=== PATIENT | female | born 1970 | race Caucasian/White ===

== ENCOUNTER → 2023-05-14 13:09 | Outpatient (REF) | payer OTHER, SELFPAY | LOC: HWWDC 13:09 | PROVIDERS: ATTENDING PHYSICIAN Physician Assistant Medical | DX: Z12.31 Encounter for screening mammogram for malignant neoplasm of breast (principal) | CPT/HCPCS: 77063; 77067 ==

== ENCOUNTER → 2023-05-17 18:09 | Outpatient (REF) | payer OTHER, SELFPAY | LOC: MRI 18:09 | PROVIDERS: ATTENDING PHYSICIAN Registered Nurse; FAMILY PHYSICIAN Physician Assistant Medical | DX: R42 Dizziness and giddiness (principal); R90.89 Other abnormal findings on diagnostic imaging of central nervous system | CPT/HCPCS: 70553; A9575 ==

== ENCOUNTER → 2024-07-14 08:11 | Outpatient (REF) | payer OTHER, SELFPAY | LOC: HWWDC 08:11 | PROVIDERS: ATTENDING PHYSICIAN Student in an Organized Health Care Education/Training Program | DX: Z12.31 Encounter for screening mammogram for malignant neoplasm of breast (principal) | CPT/HCPCS: 77063; 77067 ==

== ENCOUNTER 2025-01-07 19:01 | Emergency (ER) | payer OTHER, SELFPAY ==
[2025-01-07 19:06] VITALS: BP 153/91
[2025-01-07 19:38] LABS: Hematocrit 41.4 % (37.0-47.0); Hemoglobin 14.6 g/dL (12.0-16.0); Mean Corp Hgb Conc. 35.3 g/dL (33.0-37.0); Mean Corpuscular Volume 93.7 fL (81.0-99.0); Nucleated Red Blood Cells % 0 %; Platelet Count 230 10^3/uL (130-400); Red Cell Dist. Width 13.2 % (11.5-14.5)
[2025-01-07 19:59] LABS: ALT (SGPT) 24 U/L (0-35); AST (SGOT) 25 U/L (14-36); Albumin 4.2 g/dl (3.5-5.0); Alkaline Phosphatase 57 U/L (38-126); Blood Urea Nitrogen 12 mg/dl (7-17); Calcium 9.4 mg/dl (8.4-10.2); Carbon Dioxide 27 mmol/L (22-30); Chloride 105 mmol/L (98-107); Glucose 114 mg/dl (70-99); Lipase 104 U/L (23-300); Potassium 4.1 mmol/L (3.5-5.1); Sodium 138 mmol/L (135-145); Total Protein 6.6 g/dl (6.3-8.2); eGFR > 60.00
[2025-01-07 21:29] VITALS: BP 131/65; BMI 44.3
[2025-01-07 22:00] VITALS: BP 131/72
--- NOTE | 2025-01-07 22:28 | ED.GENMED ---
History of Present Illness
General
Chief Complaint: Abdominal Pain
Source: patient
Exam Limitations: none
Time Seen by Provider: 01/07/25 21:23
Nursing documentation reviewed up to this point in time: agreed with
History of Present Illness
History of Present Illness:
see MDM
Past History
Past History
ED Past Medical History: Cancer (Skin CA), GERD, Hypercholesterolemia, Hypothyroidism, Psychiatric (Anxiety), Other (Low back pain, headaches, Herniated disc) and Other (Genital and occular herpes)
ED Past Surgical History: Appendectomy (May 2011) and
Social History
Tobacco: Former smoker
Alcohol: Occasional
Personal: Single
Living: alone
Employment: Employed
Family History
Family History: Other (Both biological parents with mental health issues)
Review of Systems
Review of Systems
Allergies reviewed?: Yes
All Other Systems: Not applicable
Phy Exam
Physical Exam
Physical Exam:
GENERAL: Alert , in no apparent distress
EYE: pupils equal and reactive
NECK: Supple
ENT: o/p clr, mmm.
CARDIAC: Regular rate and rhythm .
LUNGS: Clear breath sounds bilaterally, no acute respiratory distress, no wheezes/rales/rhonchi
ABDOMEN: Soft, obese, without focal tenderness, no r/g, no cvat, normal bowel sounds
rectal: small nonbleeding external hemorrhoid; no vesicles
gu: no visualized herpetic lesions in vaginal folds
NEUROLOGICAL: Alert and oriented, no focal neuro deficits
SKIN: Warm and dry, skin intact.
MUSCULOSKELETAL: No edema, well perfused. neg zurdo's sign
PSYCH: Normal and appropriate interaction.
Course
Orders/Labs/Results
Orders:
Orders
01/07/25 19:29
Complete Blood Count/With Diff Urgent
Comprehensive Metabolic Panel Urgent
Lipase Urgent
01/07/25 22:08
CT Abd/Pel (IV only)-DH only Urgent
Comment:
Reason For Exam: constipation, r/o SBO
01/07/25 22:47
Urinalysis Reflex To Culture Urgent
Date Specimen was Collected: 01/07/25
Time Specimen was Collected: 22:46
Abnormal Lab Results
01/07/25
19:29
MCH 33.0 H pg
(27.0-31.0)
Glucose 114 H mg/dl
(70-99)
01/07/25 19:29
01/07/25 19:29
Vital Signs
Initial and Last Documented VS:
Initial Vital Signs
Temp Pulse Resp BP Pulse Ox
36.8 C 90 18 153/91 99
01/07/25 19:06 01/07/25 19:06 01/07/25 19:06 01/07/25 19:06 01/07/25 19:06
Last Documented Vital Signs
Temp Pulse Resp BP Pulse Ox
36.8 C 78 13 131/72 99
01/07/25 19:06 01/07/25 22:45 01/07/25 22:45 01/07/25 22:00 01/07/25 22:45
MDM/Problems Addressed
Differential Diagnosis Includes:
see MDM
MDM/Problems Addressed:
Note:
CHIEF COMPLAINT(S)
The patient presents with abdominal pain, severe constipation, and a herpes simplex outbreak.
HISTORY OF PRESENT ILLNESS
The patient is a 54-year-old female with a history of long COVID, currently presenting with a herpes simplex outbreak that began approximately two weeks ago, characterized by a couple of lesions in the vaginal area. The patient reports significant
discomfort, particularly when urinating, due to a lesion on the clitoral cooley, and describes an abdominal sensitivity that has persisted for about ten days. The abdominal area, from below the rib cage to the region around the belly button, is
described as sore and sensitive.
The patient is experiencing severe constipation, noting an inability to pass stool despite taking stool softeners like docusate sodium (Colace) for approximately ten days and using enemas without significant results. She also reports occasional acid
reflux. An X-ray reviewed online apparently indicated a collapsed small bowel and partial blockage, suggesting the need for further imaging.
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 She reports this has mildly improved her symptoms.
The patient denies using narcotic pain medications and is currently taking ibuprofen for pain management. There is no history of vomiting, although nausea is reported, particularly in the mornings.
PAST SURGICAL HISTORY
The patient has an appendectomy in her surgical history.
MEDICATIONS
- Valacyclovir (Valtrex) 1 gram once daily for ocular shingles, increased to twice daily during herpes outbreaks.
- Docusate sodium (Colace) for constipation.
- Ibuprofen for pain.
REVIEW OF SYSTEMS
- Gastrointestinal: Severe constipation, abdominal soreness, and occasional acid reflux.
- Genitourinary: Dysuria due to herpes lesion, genital lesions.
- Neurological: Long COVID-related symptoms.
- Skin: Herpes simplex lesions on the vaginal area and a couple on the body.
PHYSICAL EXAM
- Abdominal tenderness observed during the examination.
- No stool was palpable during the rectal examination.
- Nursing notes reviewed and vital signs reviewed.
PLAN
- A computed tomography (CT) scan is planned to assess for potential bowel obstruction.
- Administration of a stronger laxative may be considered based on the CT findings.
- Continue valacyclovir (Valtrex) as prescribed for herpes management.
- Discuss the possibility of administering additional MiraLAX to aid bowel movements if no bowel obstruction is noted on the CT scan.
DIFFERENTIAL DIAGNOSIS
The Differential Diagnosis includes, in no particular order and is not limited to:
1. Bowel obstruction.
2. Severe constipation.
3. Small bowel collapse.
4. Herpes simplex virus outbreak.
5. Gastrointestinal motility disorder.
6. Acute gastroenteritis.
7. Peptic ulcer disease.
8. Diverticulitis.
9. Irritable bowel syndrome (IBS).
10. Urinary tract infection.
54 y/o F
h/o anxiety
chronic ocular shingles
also with genital herpes
says that she started feeling vaginal discomfot about 10 day ago and felt herpes lesion near clitoral cooely
so she bumped up her once daily dose of valacyclovir to BID for a few days and felt like it was gettin little better
then started noticing she was constipated, which isn't unusual but she would have great difficulty siting on toilet and trying to move bowels
she tried stool softener without relief
she also had an outpatient xrayfrom pcp and found results in the portal and it suggested partial sbo so she came in
having some mild epigastric pain and fullness
no vomtiing, fever, chills, dysuria
on exam htere are no obvious herpetic lesions in her labia or anus visualized
rectal exxam without fecal impaction
abdomen obese and nontender
labs show normal wbc
neg ua
CTAP no obstrution
d/c home
took 1 dose miralax earlier today
miralax bid or mag citrate
*Pulse Oximetry
SaO2: 98
Oxygen Mode of Delivery: Room air
Patient hypoxic: no (99)
*Critical Care Note
Total Time (30-74mins, 75-104mins- exclusive of procedures): Not Applicable
ED Attending Note
-
Portions of this chart may have been created with voice recognition software.� Occasional wrong word or��sound alike� substitutions may have occurred due to the inherent limitations of voice recognition software.
Discharge Plan
Departure
Patient Disposition: Home (Routine Discharge)
Date of Disposition: 01/07/25
Time of Disposition: 23:54
Patient with high blood pressure during this ER visit?: No
Condition: Fair
Covid-19: Not Applicable
Discharge Problem:
Constipation
Instructions: Constipation, Adult (DC)
Prescriptions:
New
magnesium citrate Solution
150 ml PO ONCE PRN (Reason: Constipation) Qty: 296 0RF
Rx Instructions:
150 ml po, if no bm in 12 hours repeat x 1
No Action
escitalopram oxalate 10 MG tablet
20 mg PO DAILY
omega 9-ffc-piz-fish oil 1 EACH capsule
2,000 mg PO BID
K Vitals
1 tab PO DAILY
L.acidoph,paracasei,B.animalis 1 EACH capsule
1 ea PO DAILY
coenzyme Q10-vit E-vit E mixed 1 EACH capsule
1 ea PO DAILY
valacyclovir 500 MG tablet
500 mg PO DAILY
Magnesium Zinc
1 tab PO DAILY
zgtsfgpjc-apzngo-xmjwxhom-scop [] 16.2 MG tablet
16.2 mg PO BID PRN (Reason: abdominal pain) Qty: 15 0RF
penicillin V potassium 500 mg tablet
500 mg PO TID Qty: 15 0RF
Referrals:
Elizabeth Michel PA-C [Family Provider, Family Practice] - Follow up in 2-3 days
Activity Restrictions/Additional Instructions:
YOUR CONSTIPATION IS NOT CAUSING A BOWEL OBSTRUCTION
TRY METAMUCIL DAILY FOR YOUR CONSTIPATION, THIS IS A STOOL SOFTENER
YOU CAN TRY MIRALAX TWICE AD AYFOR 2-3 DAYS
IF NO RELIEF YOU CAN TRY MAGNESIUM CITRATE (HALF BOTTLE, IF NO BM IN 12 HOURS, RPEAT)
BUT DO NOT TAKE MIRALAX AND MAGNESIUM CITRATE TOGETHER
return for any concerns.
Interventions
Interventions:
*Risk Screen - Suicide Last Done: 01/07/25 19:21
*General Assessment Last Done: 01/07/25 21:29
*Neglect/Abuse Screening Last Done: 01/07/25 19:21
*ED- Fall Risk Assessment Last Done: 01/07/25 21:29
*ED COVID-19 Vaccine History Last Done: 01/07/25 21:29
*ED Influenza Vaccine History Last Done: 01/07/25 21:29
PF-Uqynxy-Bssyxxctps Assessment Last Done: 01/07/25 21:32
Discharge Date and Time
Print Language: PASHTO
[2025-01-07 22:54] LABS: Urine Character Clear (Clear)
== END 2025-01-08 00:37 | disposition home or self-care (01) ==
LOC: EMR 19:01
PROVIDERS: Emergency Medicine; Physician Assistant; EMERGENCY PHYSICIAN Emergency Medicine; FAMILY PHYSICIAN Physician Assistant Medical
DX: K59.00 Constipation, unspecified (principal); B02.9 Zoster without complications; E03.9 Hypothyroidism, unspecified; E78.00 Pure hypercholesterolemia, unspecified; K21.9 Gastro-esophageal reflux disease without esophagitis; Z87.891 Personal history of nicotine dependence; Z90.49 Acquired absence of other specified parts of digestive tract; Z85.828 Personal history of other malignant neoplasm of skin; Z79.624 Long term (current) use of inhibitors of nucleotide synthesis
CPT/HCPCS: 99284; 74177; 80053; 81003; 83690; 85025; Q9967